=== PATIENT | male | born 1960 | race Caucasian/White ===

== ENCOUNTER 2017-09-20 18:04 | Outpatient (CLI) | payer BC ==
--- NOTE | 2017-09-21 17:52 | Ultrasound Report ---
NECK ULTRASOUND: 09/20/2017 CLINICAL INDICATION: Mass at left angle of jaw. TECHNIQUE: Real-time scanning was performed with banking representative static images obtained. FINDINGS: Ultrasound of the neck was performed. The palpable abnormality correlates with the left submandibular gland and an adjacent lymph node, which measures 1.5 x 1.3 x 0.7 cm. Other mildly enlarged lymph nodes are seen in the left neck, measuring up to 1.6 x 0.6 x 0.6 cm. IMPRESSION: LEFT CERVICAL ADENOPATHY. CONSIDER NECK CT FOR FURTHER EVALUATION. JOB #: [id number] EXT JOB #: [id number] [place]
== END 2017-09-20 18:05 | disposition home or self-care (01) ==
LOC: DI 18:04
PROVIDERS: ATTEND Family Medicine
DX: R59.0 Localized enlarged lymph nodes (principal)
CPT/HCPCS: 76536

== ENCOUNTER 2019-10-16 08:52 | Day surgery (SDC) | payer BC ==
[2019-10-16] MEDS ORDERED: PROPOFOL 200 MG/20 ML VIAL IVP ONE (08:53)
[2019-10-16] MEDS ORDERED: MIDAZOLAM 2 MG/2 ML VIAL IVP ONE (08:53)
[2019-10-16] MEDS ORDERED: DEXAMETHASONE 4 MG/ML VIAL IVP ONE (08:53)
[2019-10-16] MEDS ORDERED: KETOROLAC 30 MG/ML VIAL IVP ONE (08:53)
[2019-10-16] MEDS ORDERED: fentaNYL 100 MCG/2 ML VIAL IVP ONE (08:53)
[2019-10-16] MEDS ORDERED: CEFAZOLIN SODIUM IN 0.9 % NACL 2 GM/100 ML BAG IV ONE (09:09)
[2019-10-16] MEDS ORDERED: LACTATED RINGERS 1,000 ML IV ONE (09:21)
[2019-10-16] MEDS ORDERED: BUPIVACAINE 0.5% PF 30 ML VIAL ONE (09:24)
[2019-10-16] MEDS ORDERED: LIDOCAINE 1%-EPI 1:100000 20 ML MDV ONE (09:25)
[2019-10-16] MEDS ORDERED: ceFAZolin 1 GM VIAL ONE (09:26)
--- NOTE | 2019-10-16 10:04 | ANESTHESIA ---
Pre-Anesthesia VS, & Labs - Diagnosis incarcerated umbilical hernia - Procedure umbilical hernia repair Vital Signs: Temp Pulse Resp BP Pulse Ox 36.5 C 70 16 131/90 H 97 10/16/19 09:14 10/16/19 09:14 10/16/19 09:14 10/16/19 09:14 10/16/19 09:14 Height 6 ft 1 in Weight (kg) 113.7 kg - NPO >8 hours Home Medications and Allergies Home Medications: Ambulatory Orders Cyclobenzaprine HCl 10 mg PO TID PRN 10/09/19 Ibuprofen 800 mg PO DAILY 10/09/19 Lisinopril 40 mg PO QPM 10/09/19 Metoprolol Tartrate 50 mg PO BID 10/09/19 Multivitamin [Multiple Vitamins] 1 each PO DAILY 10/09/19 traMADol [Ultram] 50 mg PO ONCE 10/18/14 Cyclobenzaprine HCl 10 mg PO TID PRN 10/09/19 Ibuprofen 800 mg PO DAILY 10/09/19 Lisinopril 40 mg PO QPM 10/09/19 Metoprolol Tartrate 50 mg PO BID 10/09/19 Multivitamin [Multiple Vitamins] 1 each PO DAILY 10/09/19 Allergies/Adverse Reactions: Allergies Allergy/AdvReac Type Severity Reaction Status Date / Time No Known Drug Allergies Allergy Verified 10/18/14 11:56 Anes History & Medical History - Anesthetic History Anesthesia Complications: reports: No previous complications Family history of Anesthesia Complications: Denies Family history of Malignant Hyperthermia: Denies - Medical History Cardiovascular: reports: Hypertension Pulmonary: reports: Sleep apnea (has CPAP, does not use) Gastrointestinal: reports: None Urinary: reports: None Musculoskeletal: reports: Chronic back pain Endocrine/Autoimmune: reports: None Skin: reports: None Psychosocial: reports: Alcohol (social) - Surgical History Eyes Ears Nose Throat (EENT): Tonsil/Adenoidectomy, Other Orthopedic: Spine surgery Exam General: Alert, Oriented x3, Cooperative Dental: WNL Mouth Openin Fingerbreadth Neck Mobility: Normal Mallampati classification: II Thyromental Distance: 4-6 cm Respiratory: Lungs clear, Normal breath sounds, No respiratory distress Cardiovascular: Regular rate Neurological: Normal speech Mental/Cognitive Status: Alert/Oriented X3, Normal for patient Cognitive Status: Within normal limits Plan Anesthesia Type: General Consent for Procedure(s) Verified and Reviewed: Yes Code Status: Attempt Resuscitation ASA classification: 2-Mild systemic disease Is this case an emergency?: No
[2019-10-16] MEDS ORDERED: LIDOCAINE 1%-EPI 1:100000 30 ML MDV SUBQ ONE (10:29)
[2019-10-16] MEDS ORDERED: BUPIVACAINE 0.5% PF 30 ML VIAL SUBQ ONE (10:30)
[2019-10-16] MEDS ORDERED: ceFAZolin 1 GM VIAL IR ONE (10:30)
[2019-10-16] MEDS ORDERED: ONDANSETRON 4 MG/2 ML VIAL IVP PRN (11:05)
[2019-10-16] MEDS ORDERED: IBUPROFEN 600 MG TABLET PO PRN (11:05)
[2019-10-16] MEDS ORDERED: ACETAMINOPHEN 325 MG TABLET PO PRN (11:05)
[2019-10-16] MEDS ORDERED: oxyCODONE 5 MG TABLET PO PRN (11:05)
--- NOTE | 2019-10-16 11:05 | OPERATIVE REPORT ---
Operative Report - General Procedure Date: 10/16/19 Planned Procedure: Umbilical Hernia Repair Pre-Op Diagnosis: Incarcerated umbilical hernia Procedure Performed: Umbilical Hernia Repair Post Op Diagnosis: Incarcerated umbilical hernia - Procedure Note Primary Surgeon: Mario Anesthesia Provider: RIKA Drew Anesthesia Technique: General LMA, Local Pathology: None Estimated Blood Loss (mL): 1 Findings: 2 cm umbilical defect Complications: None apparent - Other Other Information/Narrative: After obtaining informed consent, the patient is brought to the operating room and placed in the supine position on the operating table. Following successful induction of general anesthesia, appropriate padding of all bony prominences, and placement appropriate monitors, the abdomen was prepped and draped in the standard surgical fashion. A timeout was held per scope protocol. All elements of the surgical safety checklist were observed before, during, and after the procedure. We began the procedure by infiltrating a mixture of local anesthetics in a circumferential fashion around the umbilicus. An incision was created directly through the umbilicus and carried down through the skin to reveal the hernia sac below. The hernia sac was sharply dissected free from the overlying skin and underlying fascia until it could be reduced back into the abdominal cavity. The resulting defect was approximately 2 cm in greatest dimension. I elected to repair the defect with a 4 cm Ventralux patch. This was dipped in Ancef containing solution and deployed into the defect per medical record administrator's directions. The anterior leaflets were shortened and sewn to the fascia with Prolene suture. The wound was checked for hemostasis and irrigated with warm Ancef containing solution. Additional local anesthetic was applied to the fascia and overlying skin. The incision was then closed in 2 layers with Vicryl and Monocryl suture and Dermabond was applied to the skin. All sponge, needle, and instrument counts were correct at the conclusion of the case. The patient was allowed awaken from anesthesia without difficulty and taken to the postanesthesia care unit in good condition.
[2019-10-16 13:18] VITALS: BP 110/68
== END 2019-10-16 08:53 | disposition home or self-care (01) ==
LOC: SDS 08:52
PROVIDERS: ATTEND Surgery
PROC: 0WUF0JZ Supplement Abdominal Wall with Synthetic Substitute, Open Approach (ICD-10-PCS; principal; 2019-10-16 10:00)
DX: K42.0 Umbilical hernia with obstruction, without gangrene (principal); I10 Essential (primary) hypertension; G47.33 Obstructive sleep apnea (adult) (pediatric); E66.9 Obesity, unspecified; Z79.899 Other long term (current) drug therapy
CPT/HCPCS: 49587; A9270; C1781; J0690; J7120